=== PATIENT | male | born 1970 | race Caucasian/White ===

== ENCOUNTER 2023-04-03 05:07 | Emergency (ER) | payer MEDICAID ==
[~2023-04-03] VITALS: Ht 182.9 cm; Wt 104.3 kg
[2023-04-03 05:15] VITALS: BP_SYST 147; PULSE 81; RESP 16; TEMP 97.9; O2SAT 97
--- NOTE | 2023-04-03 05:15 | NUR ---
[facility]. Side rails up. Report given to ELFEGO HUTCHINS.
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
--- NOTE | 2023-04-03 05:27 | NUR ---
ER at bedside examining patient.
--- NOTE | 2023-04-03 05:40 | NUR ---
PT COMPALING OF 10/ [address] SHAY ORDERED MOTRIN AND TYLENOL. PT TOLERATED WELL. PLAN OF CARE CONTINUES.
[2023-04-03] MEDS ORDERED: ACETAMINOPHEN 325 MG TABLET PO ONE (05:45)
[2023-04-03] MEDS ORDERED: IBUPROFEN 600 MG TABLET PO ONE (05:45)
--- NOTE | 2023-04-03 05:48 | NUR ---
PT TAKEN TO X-RAY BY [facility].
--- NOTE | 2023-04-03 06:06 | NUR ---
Patient given written and verbal discharge instructions and verbalizes understanding. ER MD discussed with patient the results and treatment provided. Patient in stable condition. ID arm band removed. NO Rx of given. Patient educated on pain management and to follow up with PMD. Pain Scale 5/10. Opportunity for questions provided and answered. Medication side effect fact sheet provided.
[2023-04-03 06:09] VITALS: BP_SYST 125; PULSE 75; RESP 20; TEMP 97.7; O2SAT 97
== END 2023-04-03 06:06 ==
LOC: SED 05:07
DX: G89.29 Other chronic pain (principal); M25.552 Pain in left hip; Z79.899 Other long term (current) drug therapy
CPT/HCPCS: 73502; 99283